=== PATIENT | female | born 1995 | race Two or more races ===

== ENCOUNTER 2023-09-01 15:25 | Emergency (ER) | payer BC ==
[~2023-09-01] VITALS: Ht 167.6 cm; Wt 69.9 kg
[2023-09-01] MEDS ORDERED: 0.9 % SODIUM CHLORIDE 1,000 ML IV STA (16:38)
[2023-09-01] MEDS ORDERED: ONDANSETRON HCL 2 MG/ML VIAL IV STA (16:39)
[2023-09-01] MEDS ORDERED: ONDANSETRON HCL 2 MG/ML VIAL ONE (16:54)
[2023-09-01 17:18] LABS: HEMATOCRIT 42.7 % (36.0-45.00); HEMOGLOBIN 14.9 g/dL (12.0-15.00); MEAN CELL VOLUME 101.6 fL (80.00-100.00); MEAN CORPUSCULAR HEMOGLOBIN 35.5 pg (27.00-32.0); PLATELET COUNT 280 K/uL (150-450); RED BLOOD COUNT 4.21 M/uL (4.00-6.00); RED CELL DISTRIBUTION WIDTH 13.7 % (11.5-14.5)
[2023-09-01 17:58] LABS: CALCIUM 9.6 mg/dL (8.5-10.1); CREATININE SERUM 0.58 mg/dL (0.55-1.02); GFR 124.7; POTASSIUM 4.1 mEq/L (3.5-5.1)
[2023-09-01 18:39] LABS: PH,URINE 6.5 (5.0-8.0); URINE APPEARANCE Cloudy; URINE BILIRRUBIN Small (NEGATIVE); URINE BLOOD Negative; URINE COLOR Dark Yellow; URINE GLUCOSE Negative (NEGATIVE); URINE LEUKOCYTE Trace; URINE NITRATE Negative; URINE PROTEIN 30 (NEGATIVE)
[2023-09-01 18:42] LABS: URINE EPITHELIAL CELLS 84.5 uL (0.0-38.8); URINE RBC 10.2 uL (0.0-20.8); URINE WBC 42.9 uL (0.0-23.2)
[2023-09-01 19:21] LABS: URINE MUCUS HEAVY
== END 2023-09-01 21:57 | disposition home or self-care (01) ==
LOC: ER 15:26
PROVIDERS: Emergency Medicine
DX: K52.89 Other specified noninfective gastroenteritis and colitis (principal); R11.10 Vomiting, unspecified; Z33.1 Pregnant state, incidental